=== PATIENT | female | born 1985 | race African-American/Black ===

== ENCOUNTER 2017-02-27 21:21 | Emergency (ER) | payer OTHER ==
[~2017-02-27] VITALS: Ht 167.6 cm; Wt 58.5 kg
[2017-02-27 21:47] LABS: BILIRUBIN,URINE NEGATIVE (NEG); GLUCOSE,URINE NEGATIVE (NEG); NITRITE,URINE NEGATIVE (NEG); PH,URINE 5.5; PROTEIN,URINE NEGATIVE (NEG-TRACE); UROBILINOGEN,URINE 0.2 mg/dL (0.2 mg/dL)
--- NOTE | 2017-02-27 21:48 | PHYS DOC ---
Adult General Chief Complaint Chief Complaint: VAGINAL BLEEDING [facility] HPI Patient is a 31 year old female presenting to the emergency department for evaluation of vaginal bleeding that started on the plane earlier today and she is arriving here from [place]. Patient says it is more spotting and that she has some lower abdominal cramping. She is approximately 6 weeks and is so is unsure where she is going to get her care. She denies any fevers chills nausea vomiting dizziness or other systemic symptoms. Review of Systems Review of Systems Constitutional: Denies fever or chills [] Respiratory: Denies cough or shortness of breath [] Cardiovascular: No additional information not addressed in HPI [] GI: + abdominal pain. No nausea, vomiting, bloody stools or diarrhea [] : Denies dysuria or hematuria [] Musculoskeletal: Denies back pain or joint pain [] Integument: Denies rash or skin lesions [] Neurologic: Denies headache, focal weakness or sensory changes [] Allergies Allergies Allergies Coded Allergies Type Severity Reaction Last Updated Verified ondansetron Allergy Intermediate hives 02/27/17 Yes Physical Exam Physical Exam Constitutional: Well developed, well nourished, no acute distress, non-toxic appearance. [] Cardiovascular:Heart rate regular rhythm, no murmur [] Lungs & Thorax: Bilateral breath sounds clear to auscultation [] Abdomen: Bowel sounds normal, soft, mild lower abdominal tenderness diffusely, no rebound or guarding, no masses, no pulsatile masses. Pelvic exam revealed closed os with mild amount of blood in her posterior vagina. No cervical motion or adnexal tenderness on exam. Skin: Warm, dry, no erythema, no rash. [] Back: No tenderness, no CVA tenderness. [] Extremities: No tenderness, no cyanosis, no clubbing, ROM intact, no edema. [] Neurologic: Alert and oriented X 3, normal motor function, normal sensory function, no focal deficits noted. [] Current Patient Data Vital Signs Vital Signs Date Time Temp Pulse Resp B/P (MAP) Pulse Ox O2 Delivery O2 Flow Rate FiO2 02/27/17 21:33 99.1 122 16 142/82 (102) 98 Room Air 99.1 Lab Values Laboratory Tests Test 02/27/17 21:35 02/27/17 21:44 Urine Collection Type Unknown Urine Color Yellow Urine Clarity Clear Urine pH 5.5 Urine Specific [facility] 1.025 Urine Protein Negative mg/dL (NEG-TRACE) Urine Glucose (UA) Negative mg/dL (NEG) Urine Ketones (Stick) Trace mg/dL (NEG) Urine Blood Moderate (NEG) Urine Nitrite Negative (NEG) Urine Bilirubin Negative (NEG) Urine Urobilinogen Dipstick 0.2 mg/dL (0.2 mg/dL) Urine Leukocyte Esterase Negative (NEG) Urine RBC 6-10 /HPF (0-2) Urine WBC Occ /HPF (0-4) Urine Squamous Epithelial Cells Few /LPF Urine Bacteria 0 /HPF (0-FEW) Urine Mucus Marked /LPF POC Urine HCG, Qualitative Hcg positive (Negative) White Blood Count 6.2 x10^3/uL (4.0-11.0) Red Blood Count 3.79 x10^6/uL (3.50-5.40) Hemoglobin 10.3 g/dL (12.0-15.5) L Hematocrit 31.5 % (36.0-47.0) L Mean Corpuscular Volume 83 fL (79-100) Mean Corpuscular Hemoglobin 27 pg (25-35) Mean Corpuscular Hemoglobin Concent 33 g/dL (31-37) Red Cell Distribution Width 16.9 % (11.5-14.5) H Platelet Count 118 x10^3/uL (140-400) L Neutrophils (%) (Auto) 56 % (31-73) Lymphocytes (%) (Auto) 30 % (24-48) Monocytes (%) (Auto) 8 % (0-9) Eosinophils (%) (Auto) 5 % (0-3) H Basophils (%) (Auto) 1 % (0-3) Neutrophils # (Auto) 3.5 x10^3uL (1.8-7.7) Lymphocytes # (Auto) 1.9 x10^3/uL (1.0-4.8) Monocytes # (Auto) 0.5 x10^3/uL (0.0-1.1) Eosinophils # (Auto) 0.3 x10^3/uL (0.0-0.7) Basophils # (Auto) 0.0 x10^3/uL (0.0-0.2) Maternal Serum HCG Beta Subunit 1832 mIU/mL (0-5) H Sodium Level 142 mmol/L (136-145) Potassium Level 3.5 mmol/L (3.5-5.1) Chloride Level 108 mmol/L (98-107) H Carbon Dioxide Level 25 mmol/L (21-32) Anion Gap 9 (6-14) Blood Urea Nitrogen 11 mg/dL (7-20) Creatinine 0.7 mg/dL (0.6-1.0) Estimated GFR (Cockcroft-Gault) 98.9 BUN/Creatinine Ratio 16 (6-20) Glucose Level 99 mg/dL (70-99) Calcium Level 8.8 mg/dL (8.5-10.1) Total Bilirubin 0.2 mg/dL (0.2-1.0) Aspartate Amino Transferase (AST) 14 U/L (15-37) L Alanine Aminotransferase (ALT) 18 U/L (14-59) Alkaline Phosphatase 58 U/L (46-116) Total Protein 7.0 g/dL (6.4-8.2) Albumin 3.6 g/dL (3.4-5.0) Albumin/Globulin Ratio 1.1 (1.0-1.7) Laboratory Tests 02/27/17 21:44 Laboratory Tests 02/27/17 21:44 Microbiology 02/27/17 Wet Prep - Final, Complete EKG EKG [] Radiology/Procedures Radiology/Procedures OB ultrasound less than 14 weeks to include transabdominal and transvaginal imaging 02/27/2017 CLINICAL HISTORY: First trimester with vaginal bleeding for one day. TECHNIQUE: Using the distended urinary bladder as a sonographic window, a real-time ultrasound examination of the pelvis was performed. Additionally in an attempt at better evaluate the uterus and adnexa, a transvaginal ultrasound study was performed. Multiple images were obtained. FINDINGS: An oval-shaped fluid collection is seen within the endometrial canal near the fundus of the uterus which resembles an early gestational sac. No yolk sac or embryonic pole is seen within this structure to confirm an IUP at this time, however. The mean sac diameter measures 5.3 mm. This corresponds to an estimated gestational age by ultrasound of 5 weeks 2 days plus or minus a standard deviation of 6 days. The uterus is otherwise within normal limits. Both ovaries are within normal limits in size and echogenicity. The right ovary measures 2.9 x 2.8 x 1.2 cm in size. The left ovary measures 3.2 x 1.7 x 1.9 cm in size. No adnexal mass is seen. A small amount of free fluid is seen within the pelvis. IMPRESSION: 1. An oval-shaped fluid collection is seen within the endometrial canal which resembles an early gestational sac (estimated gestational age by ultrasound 5 weeks 2 days plus or minus a standard deviation of 6 days). No yolk sac or embryonic pole is seen within this structure to confirm a living IUP at this time, however. 2. Small amount free fluid is seen within the pelvis. Electronically signed by: Adarsh Ramirez MD (02/27/2017 10:38 PM) [facility] DICTATED and SIGNED BY: ADARSH RAMIREZ MD DATE: 02/27/172231 Course & Med Decision Making Course & Med Decision Making HCG is quite low and ultrasound is showing no signs of ectopic with possible early IUP. They threatened miscarriage and she will need to follow with OB in 48 hours and come back to the ED sooner with worsening pain bleeding or other general concerns. Aware and agreeable with plan and verbalized understanding of the above instructions. Dragon Disclaimer Dragon Disclaimer This electronic medical record was generated, in whole or in part, using a voice recognition dictation system. Departure Departure Impression: Primary Impression: Threatened Disposition: 01 HOME, SELF-CARE Condition: STABLE Referrals: JEWELS BRITTON Jr, MD Patient Instructions: Threatened Miscarriage TINO CURTIS DO Feb 27, 2017 21:48
[2017-02-27 21:51] LABS: BASO % 1 % (0-3); EOS % 5 % (0-3); HEMATOCRIT 31.5 % (36.0-47.0); HEMOGLOBIN 10.3 g/dL (12.0-15.5); LYMPH # 1.9 x10^3/uL (1.0-4.8); LYMPH % 30 % (24-48); MEAN CORPUSCULAR HEMOGLOBIN 27 pg (25-35); MEAN CORPUSCULAR HGB CONC 33 g/dL (31-37); MEAN CORPUSCULAR VOLUME 83 fL (79-100); MONO % 8 % (0-9); NEUT % 56 % (31-73); PLATELET COUNT 118 x10^3/uL (140-400); RED BLOOD COUNT 3.79 x10^6/uL (3.50-5.40); RED CELL DISTRIBUTION WIDTH 16.9 % (11.5-14.5); WHITE BLOOD COUNT 6.2 x10^3/uL (4.0-11.0)
[2017-02-27 21:53] LABS: BACTERIA,URINE 0 /HPF (0-FEW); SQUAMOUS EPITHELIAL CELL,UR FEW /LPF; WBC,URINE OCC /HPF (0-4)
[2017-02-27 21:59] LABS: CALCIUM 8.8 mg/dL (8.5-10.1); CREATININE 0.7 mg/dL (0.6-1.0); GFR 98.9; POTASSIUM 3.5 mmol/L (3.5-5.1)
[2017-02-27 22:10] LABS: ALBUMIN 3.6 g/dL (3.4-5.0); ALBUMIN/GLOBULIN RATIO 1.1 (1.0-1.7); TOTAL BILIRUBIN 0.2 mg/dL (0.2-1.0)
--- NOTE | 2017-02-27 22:42 | RAD ---
OB ultrasound less than 14 weeks to include transabdominal and transvaginal imaging 02/27/2017 CLINICAL HISTORY: First trimester with vaginal bleeding for one day. TECHNIQUE: Using the distended urinary bladder as a sonographic window, a real-time ultrasound examination of the pelvis was performed. Additionally in an attempt at better evaluate the uterus and adnexa, a transvaginal ultrasound study was performed. Multiple images were obtained. FINDINGS: An oval-shaped fluid collection is seen within the endometrial canal near the fundus of the uterus which resembles an early gestational sac. No yolk sac or embryonic pole is seen within this structure to confirm an IUP at this time, however. The mean sac diameter measures 5.3 mm. This corresponds to an estimated gestational age by ultrasound of 5 weeks 2 days plus or minus a standard deviation of 6 days. The uterus is otherwise within normal limits. Both ovaries are within normal limits in size and echogenicity. The right ovary measures 2.9 x 2.8 x 1.2 cm in size. The left ovary measures 3.2 x 1.7 x 1.9 cm in size. No adnexal mass is seen. A small amount of free fluid is seen within the pelvis. IMPRESSION: 1. An oval-shaped fluid collection is seen within the endometrial canal which resembles an early gestational sac (estimated gestational age by ultrasound 5 weeks 2 days plus or minus a standard deviation of 6 days). No yolk sac or embryonic pole is seen within this structure to confirm a living IUP at this time, however. 2. Small amount free fluid is seen within the pelvis. Electronically signed by: Adarsh Garcia MD (02/27/2017 10:38 PM) [facility]
[2017-02-27 23:40] VITALS: BP 123/76
== END 2017-02-27 23:42 | disposition home or self-care (01) ==
LOC: ER 21:21
DX: O20.0 Threatened abortion (principal); Z88.8 Allergy status to other drugs, medicaments and biological substances; Z3A.01 Less than 8 weeks gestation of pregnancy
CPT/HCPCS: 36415; 76801; 76817; 80053; 81001; 81025; 84702; 85025; 86850; 86900; 86901; 87491; 87591; 99285; Q0111

== ENCOUNTER 2017-03-01 10:15 | Emergency (ER) | payer OTHER ==
[~2017-03-01] VITALS: Ht 167.6 cm; Wt 58.5 kg
--- NOTE | 2017-03-01 10:36 | PHYS DOC ---
Past Medical History Past Medical History: No Pertinent History Past Surgical History: No Surgical History Alcohol Use: None Drug Use: None Adult General Chief Complaint Chief Complaint: VAGINAL BLEEDING HPI HPI Patient is a 31 year old -[place] female who presents with complaining of segovia. She states she is a G3P to this process 6 weeks . She states she was seen 2 days ago and told she might be having a miscarriage and follow- up with OB. She called today but was unable to get into the office and has an appointment on March 12. She states today she passed a large clot and she is concerned. She denies any lightheadedness dizziness. She states she went to 4 pads yesterday. She wants her beta Quant checked in addition to an ultrasound again. Review of Systems Review of Systems Constitutional: Denies fever or chills [] Eyes: Denies change in visual acuity, redness, or eye pain [] HENT: Denies nasal congestion or sore throat [] Respiratory: Denies cough or shortness of breath [] Cardiovascular: No additional information not addressed in HPI [] GI: Denies abdominal pain, nausea, vomiting, bloody stools or diarrhea [] : Denies dysuria or hematuria [] Musculoskeletal: Denies back pain or joint pain [] Integument: Denies rash or skin lesions [] Neurologic: Denies headache, focal weakness or sensory changes [] Endocrine: Denies polyuria or polydipsia [] Allergies Allergies Allergies Coded Allergies Type Severity Reaction Last Updated Verified ondansetron Allergy Intermediate hives 02/27/17 Yes Physical Exam Physical Exam Constitutional: Well developed, well nourished, no acute distress, non-toxic appearance. [] HENT: Normocephalic, atraumatic, bilateral external ears normal, oropharynx moist, no oral exudates, nose normal. [] Eyes: PERRLA, EOMI, conjunctiva normal, no discharge. [] Neck: Normal range of motion, no tenderness, supple, no stridor. [] Cardiovascular:Heart rate regular rhythm, no murmur [] Lungs & Thorax: Bilateral breath sounds clear to auscultation [] Abdomen: Bowel sounds normal, soft, no tenderness, no masses, no pulsatile masses. Mild tender palpation suprapubic area, no rebound or guarding. Skin: Warm, dry, no erythema, no rash. [] Back: No tenderness, no CVA tenderness. [] Extremities: No tenderness, no cyanosis, no clubbing, ROM intact, no edema. [] Neurologic: Alert and oriented X 3, normal motor function, normal sensory function, no focal deficits noted. [] Psychologic: Affect normal, judgement normal, mood normal. [] Current Patient Data Vital Signs Vital Signs Date Time Temp Pulse Resp B/P (MAP) Pulse Ox O2 Delivery O2 Flow Rate FiO2 03/01/17 10:25 99.2 114 20 140/84 (102) 98 Room Air 99.2 Lab Values Laboratory Tests Test 03/01/17 10:28 03/01/17 10:40 03/01/17 11:30 White Blood Count 5.8 x10^3/uL (4.0-11.0) Red Blood Count 4.15 x10^6/uL (3.50-5.40) Hemoglobin 11.2 g/dL (12.0-15.5) L Hematocrit 34.5 % (36.0-47.0) L Mean Corpuscular Volume 83 fL (79-100) Mean Corpuscular Hemoglobin 27 pg (25-35) Mean Corpuscular Hemoglobin Concent 32 g/dL (31-37) Red Cell Distribution Width 17.1 % (11.5-14.5) H Platelet Count 142 x10^3/uL (140-400) Neutrophils (%) (Auto) 66 % (31-73) Lymphocytes (%) (Auto) 24 % (24-48) Monocytes (%) (Auto) 7 % (0-9) Eosinophils (%) (Auto) 3 % (0-3) Basophils (%) (Auto) 1 % (0-3) Neutrophils # (Auto) 3.9 x10^3uL (1.8-7.7) Lymphocytes # (Auto) 1.4 x10^3/uL (1.0-4.8) Monocytes # (Auto) 0.4 x10^3/uL (0.0-1.1) Eosinophils # (Auto) 0.2 x10^3/uL (0.0-0.7) Basophils # (Auto) 0.0 x10^3/uL (0.0-0.2) Prothrombin Time 12.9 SEC (11.7-14.0) Prothrombin Time INR 1.0 (0.8-1.1) PTT 32 SEC (24-38) Sodium Level 140 mmol/L (136-145) Potassium Level 3.2 mmol/L (3.5-5.1) L Chloride Level 106 mmol/L (98-107) Carbon Dioxide Level 26 mmol/L (21-32) Anion Gap 8 (6-14) Blood Urea Nitrogen 7 mg/dL (7-20) Creatinine 0.7 mg/dL (0.6-1.0) Estimated GFR (Cockcroft-Gault) 119.7 Glucose Level 92 mg/dL (70-99) Calcium Level 8.9 mg/dL (8.5-10.1) Serum Test, Qualitative Positive (NEG) Urine Collection Type Unknown Urine Color Yellow Urine Clarity Clear Urine pH 6.0 Urine Specific [facility] 1.010 Urine Protein Negative mg/dL (NEG-TRACE) Urine Glucose (UA) Negative mg/dL (NEG) Urine Ketones (Stick) Negative mg/dL (NEG) Urine Blood Large (NEG) Urine Nitrite Negative (NEG) Urine Bilirubin Negative (NEG) Urine Urobilinogen Dipstick 0.2 mg/dL (0.2 mg/dL) Urine Leukocyte Esterase Small (NEG) Urine RBC >40 /HPF (0-2) Urine WBC 1-4 /HPF (0-4) Urine Bacteria 0 /HPF (0-FEW) Maternal Serum HCG Beta Subunit 494 mIU/mL (0-5) H Laboratory Tests 03/01/17 10:28 Laboratory Tests 03/01/17 10:28 EKG EKG [] Radiology/Procedures Radiology/Procedures [facility] [address] [place] [address] IMAGING REPORT Signed PATIENT: PALAK MAYER ACCOUNT: [id number] : 1985 LOCATION: ER AGE: 31 SEX: F EXAM STATUS: REG ER ORD. PHYSICIAN: EB HUITRON MD REASON: vaginal bleeding PROCEDURE: OB <14 WKS W/TV Indication vaginal bleeding. A few transabdominal scans were obtained but the urinary bladder was not sufficiently distended for diagnostic transabdominal study. Subsequently transvaginal scans were obtained. Note is made of the pelvic ultrasound examination performed 2 days ago. The uterus measures approximately 9 x 6.4 x 5.4 cm. Within the endometrial cavity there is a fluid collection which may represent a misshapen gestational sac. The fluid collection is somewhat lower in the endometrial canal than on the ultrasound examination 2 days ago. No pole, yolk sac or definite IUP is seen. If this represents a gestational sac the is likely nonviable. Correlation with quantitative hCG value advised. Serial hCG values and follow-up ultrasound may also be warranted. The ovaries appeared unremarkable. Some free fluid was noted in the pelvis. IMPRESSION: Fluid collection within the uterine cavity may represent a gestational sac. If so the is likely nonviable. See above discussion.. DICTATED and SIGNED BY: RANI GASTELUM MD DATE: 03/01/171127 CC: EB HUITRON MD; NO PCP ~ Impressions: Threatened miscarriage Course & Med Decision Making Course & Med Decision Making Pertinent Labs and Imaging studies reviewed. (See chart for details) Patient doesn't want have a another pelvic exam. I agree there is nothing at this time to be gained from a pelvic exam. Her ultrasound is concerning for miscarriage with a gestational sac is still present. There is no heart tones present. Her beta Quant has decreased from 2 days ago. She did pass a clot earlier. She's being discharged home and to follow-up with OB. Return precautions given. She is agreeable plan is being discharged in stable condition at this time. Her blood type is B+. Dragon Disclaimer Dragon Disclaimer This electronic medical record was generated, in whole or in part, using a voice recognition dictation system. Departure Departure Impression: Primary Impression: Miscarriage Disposition: 01 HOME, SELF-CARE Condition: STABLE Referrals: NO PCP (PCP) Patient Instructions: Miscarriage Additional Instructions: Your labs and ultrasound show that you're likely having a miscarriage. You will have vaginal bleeding for the next several days. If you become lightheaded dizzy , you have troubles breathing, have excessive vaginal bleeding, you have abdominal pain or you've any other concerns please return back to the emergency department. You will need keep your [facility] appointment that your he has scheduled. EB HUITRON MD Mar 01, 2017 10:36
[2017-03-01 10:44] LABS: BASO % 1 % (0-3); EOS % 3 % (0-3); HEMATOCRIT 34.5 % (36.0-47.0); HEMOGLOBIN 11.2 g/dL (12.0-15.5); LYMPH # 1.4 x10^3/uL (1.0-4.8); LYMPH % 24 % (24-48); MEAN CORPUSCULAR HEMOGLOBIN 27 pg (25-35); MEAN CORPUSCULAR HGB CONC 32 g/dL (31-37); MEAN CORPUSCULAR VOLUME 83 fL (79-100); MONO % 7 % (0-9); NEUT % 66 % (31-73); PLATELET COUNT 142 x10^3/uL (140-400); RED BLOOD COUNT 4.15 x10^6/uL (3.50-5.40); RED CELL DISTRIBUTION WIDTH 17.1 % (11.5-14.5); WHITE BLOOD COUNT 5.8 x10^3/uL (4.0-11.0)
[2017-03-01 10:54] LABS: NEG OBC SER NEG; POS OBC SER POS
[2017-03-01 10:55] LABS: BILIRUBIN,URINE NEGATIVE (NEG); GLUCOSE,URINE NEGATIVE (NEG); NITRITE,URINE NEGATIVE (NEG); PROTEIN,URINE NEGATIVE (NEG-TRACE); UROBILINOGEN,URINE 0.2 mg/dL (0.2 mg/dL)
[2017-03-01 11:04] LABS: CALCIUM 8.9 mg/dL (8.5-10.1); CREATININE 0.7 mg/dL (0.6-1.0); GFR 119.7; POTASSIUM 3.2 mmol/L (3.5-5.1)
[2017-03-01 11:07] LABS: PROTHROMBIN TIME PATIENT 12.9 SEC (11.7-14.0)
[2017-03-01 11:18] LABS: BACTERIA,URINE 0 /HPF (0-FEW); RBC,URINE >40 /HPF (0-2)
--- NOTE | 2017-03-01 11:34 | RAD ---
Indication vaginal bleeding. A few transabdominal scans were obtained but the urinary bladder was not sufficiently distended for diagnostic transabdominal study. Subsequently transvaginal scans were obtained. Note is made of the pelvic ultrasound examination performed 2 days ago. The uterus measures approximately 9 x 6.4 x 5.4 cm. Within the endometrial cavity there is a fluid collection which may represent a misshapen gestational sac. The fluid collection is somewhat lower in the endometrial canal than on the ultrasound examination 2 days ago. No pole, yolk sac or definite IUP is seen. If this represents a gestational sac the is likely nonviable. Correlation with quantitative hCG value advised. Serial hCG values and follow-up ultrasound may also be warranted. The ovaries appeared unremarkable. Some free fluid was noted in the pelvis. IMPRESSION: Fluid collection within the uterine cavity may represent a gestational sac. If so the is likely nonviable. See above discussion..
[2017-03-01 11:52] VITALS: BP 117/76
== END 2017-03-01 12:50 | disposition home or self-care (01) ==
LOC: ER 10:15
DX: O03.9 Complete or unspecified spontaneous abortion without complication (principal); Z88.8 Allergy status to other drugs, medicaments and biological substances; Z3A.01 Less than 8 weeks gestation of pregnancy
CPT/HCPCS: 36415; 76801; 76817; 80048; 81001; 84702; 84703; 85025; 85610; 85730; 86900; 86901; 87086; 99285-25